=== PATIENT | male | born 1980 | race Caucasian/White ===

== ENCOUNTER 2021-03-14 11:50 | Emergency (ER) | payer SELFPAY ==
[2021-03-14] MEDS ORDERED: Lidocaine 1% w/Epinephrine 1:100K 20 ML VIAL ONE (12:21)
[2021-03-14] MEDS ORDERED: TETANUS, DIPHTHERIA TOX,ADULT (TDVAX) 0.5 ML VIAL IM ONE (12:38)
[2021-03-14] MEDS ORDERED: Bacitracin 1 PK ONE (12:38)
== END 2021-03-14 13:05 | disposition home or self-care (01) ==
LOC: BURERS 11:50
DX: S51.801A Unspecified open wound of right forearm, initial encounter (principal); F17.210 Nicotine dependence, cigarettes, uncomplicated; Z23 Encounter for immunization; W22.8XXA Striking against or struck by other objects, initial encounter
CPT/HCPCS: 64450; 90471; 90714